=== PATIENT | female | born 1970 | race Two or more races ===

== ENCOUNTER → 2019-10-16 | Day surgery (SDC) | payer OTHER ==
[~2019-10-16] VITALS: Ht 162.6 cm; Wt 65.3 kg
[~2019-10-16] MED LIST: IOHEXOL-350 100 ML VIAL IV ONE; IV NS 0.9% 250 ML IV ONE; IV NS 0.9% 500 ML IV ONE; METOPROLOL TARTRATE INJ 5 MG/5 ML AMPUL IVP ONE; METOPROLOL TARTRATE INJ 5 MG/5 ML AMPUL ONE; NITROGLYCERIN 0.4 MG/TAB BOTTLE ONE; NITROGLYCERIN 0.4 MG/TAB BOTTLE SL ONE
[2019-10-16 11:05] VITALS: BP 95/52
--- NOTE | 2019-10-16 11:30 | NUR ---
Patient was from [facility], came here for CTA, Toelrated the procedure well, Given metoprolol 5 mg IVP, NTG 0.4 SL. VS stables, no chest pain / discomfort. Ambulance will pick her up and will go back to [facility].
== END | disposition home or self-care (01) ==
LOC: CT 10:15
PROVIDERS: ATTEND Internal Medicine
DX: R07.9 Chest pain, unspecified (principal)
CPT/HCPCS: 75574; J3490; J7050; Q9967